=== PATIENT | male | born 1960 | race Caucasian/White ===

== ENCOUNTER 2017-08-18 20:24 | Emergency (ER) | payer BC, SELFPAY ==
[2017-08-18] MEDS ORDERED: Ibuprofen 800 MG TAB ONE (20:32)
== END 2017-08-18 21:10 | disposition home or self-care (01) ==
LOC: SCSER 20:24
DX: B34.9 Viral infection, unspecified (principal)
CPT/HCPCS: 99283

== ENCOUNTER 2018-11-14 21:04 | Emergency (ER) | payer BC, OTHER | END 2018-11-14 21:30 | disposition home or self-care (01) | LOC: SCSER 21:04 | DX: J34.0 Abscess, furuncle and carbuncle of nose (principal) | CPT/HCPCS: 99283 ==

== ENCOUNTER 2020-02-15 09:43 | Outpatient (CLI) | payer BC ==
--- NOTE | 2020-02-15 10:48 | RAD ---
RIGHT KNEE 4 VIEWS: HISTORY: Right knee pain. FINDINGS/IMPRESSION: Mild degenerative changes are seen. No fracture, dislocation, or bone destruction is identified. POS: [facility]
== END 2020-02-15 09:44 | disposition home or self-care (01) ==
LOC: BICRAD 09:43
PROVIDERS: ATTEND Family Medicine
DX: M25.561 Pain in right knee (principal); M17.11 Unilateral primary osteoarthritis, right knee

== ENCOUNTER 2021-01-10 09:12 | Outpatient (CLI) | payer BC ==
[2021-01-10] MEDS ORDERED: Magnevist 469MG/ML 20 ML VIAL ONE (13:13)
== END 2021-01-10 09:13 | disposition home or self-care (01) ==
LOC: TBSIIMAG 09:12
PROVIDERS: ATTEND Urology
DX: C61 Malignant neoplasm of prostate (principal)
CPT/HCPCS: 72197; A9579

== ENCOUNTER 2021-03-08 10:58 | Outpatient (CLI) | payer BC ==
[2021-03-08 12:21] LABS: Hemoglobin 14.9 g/dL (13.5-17.5); Mean Corpuscular HGB CONC 34.6 g/dL (32.0-36.0); Mean Corpuscular Hemoglobin 30.1 pg (27.0-33.0); Mean Corpuscular Volume 87.1 fl (81.2-95.1); Mean Platelet Volume 10.4 fl (7.4-10.4); Platelet Count 201 10x3/uL (150-450); RBC Distribution Width 12.6 % (11.5-14.5); Red Blood Cell (RBC) Count 4.95 10x6/uL (4.32-5.72); White Blood Cell (WBC) Count 5.8 10x3/uL (3.5-10.5)
[2021-03-08 12:33] LABS: Bilirubin Neg (Negative); Blood, Urine Negative (Negative); Clarity Cloudy (Clear); Glucose, Urine (Dipstick) Normal (Negative); Ketone, Urine 5 mg/dL (Negative); Leukocyte 25 (Negative); Nitrite Negative (Negative); Protein, Urine (Dipstick) 30 mg/dl (Neg-Trace); Urobilinogen Normal mg/dL (Less than 2)
[2021-03-08 12:39] LABS: PTT 26.5 sec (22.0-33.0); Prothrombin Time 10.7 sec (9.5-12.1)
[2021-03-08 12:47] LABS: RBC/HPF 0-3 HPF (0-3)
[2021-03-08 12:49] LABS: Anion Gap 15 mmol/L (10-20); BUN (Urea Nitrogen) 19 mg/dL (8.4-25.7); Calc. Creatinine Clearance 0 mL/min (70-130); Calcium 9.6 mg/dL (7.8-10.44); Carbon Dioxide 26 mmol/L (22-29); Chloride 107 mmol/L (98-107); Glucose 138 mg/dL (70-105); Potassium 5.1 mmol/L (3.5-5.1); Sodium 143 mmol/L (136-145)
[2021-03-08 12:51] LABS: Squamous Epithelial 0-3 HPF (0-3)
[2021-03-08 12:52] LABS: Bacteria/HPF Rare-Few HPF (None Seen); WBC/HPF 0-3 HPF (0-3)
== END 2021-03-08 10:59 | disposition home or self-care (01) ==
LOC: LABBT 10:58
PROVIDERS: ATTEND Urology
DX: Z01.812 Encounter for preprocedural laboratory examination (principal); Z12.5 Encounter for screening for malignant neoplasm of prostate; C61 Malignant neoplasm of prostate; N40.1 Benign prostatic hyperplasia with lower urinary tract symptoms; N52.9 Male erectile dysfunction, unspecified; E11.9 Type 2 diabetes mellitus without complications; R97.20 Elevated prostate specific antigen [PSA]; R35.1 Nocturia; R35.0 Frequency of micturition; R80.9 Proteinuria, unspecified; R81 Glycosuria; Z20.822 Contact with and (suspected) exposure to COVID-19
CPT/HCPCS: 80048; 81001; 85027; 85610; 85730; 87086; 93005; 93010

== ENCOUNTER 2021-03-13 06:07 | Day surgery (SDC) | payer BC ==
[2021-03-12 11:47] VITALS: BMI 28.1
[2021-03-13] MEDS ORDERED: Levofloxacin 500 mg/D5W 100 ml Premix Bag ONE (06:43)
[2021-03-13] MEDS ORDERED: cefTRIAXone\\ROCEPHIN 2 GM VIAL ONE (06:43)
[2021-03-13] MEDS ORDERED: Sodium Chloride 0.9% 100 ML ONE (06:43)
[2021-03-13] MEDS ORDERED: PROPOFOL 200 MG/20 ML VIAL ONE (07:35)
== END 2021-03-13 09:25 | disposition home or self-care (01) ==
LOC: SDC 06:07
PROVIDERS: ATTEND Urology
PROC: 0VB03ZX Excision of Prostate, Percutaneous Approach, Diagnostic (ICD-10-PCS; principal; 2021-03-13)
DX: C61 Malignant neoplasm of prostate (principal); N40.1 Benign prostatic hyperplasia with lower urinary tract symptoms; R35.0 Frequency of micturition; R35.1 Nocturia; N52.9 Male erectile dysfunction, unspecified; E11.9 Type 2 diabetes mellitus without complications; M19.90 Unspecified osteoarthritis, unspecified site; Z86.16 Personal history of COVID-19; Z79.84 Long term (current) use of oral hypoglycemic drugs; Z79.899 Other long term (current) drug therapy
CPT/HCPCS: 88305; J0696; J1956; J2704; J3490

== ENCOUNTER 2021-09-16 15:09 | Outpatient (CLI) | payer BC | END 2021-09-16 15:10 | disposition home or self-care (01) | LOC: CTENTCT 15:09 | PROVIDERS: ATTEND Student in an Organized Health Care Education/Training Program | DX: F32.9 Major depressive disorder, single episode, unspecified (principal) | CPT/HCPCS: 70486 ==

== ENCOUNTER 2022-08-26 07:01 | Day surgery (SDC) | payer BC ==
[2022-08-25 13:32] VITALS: BMI 27.8
[2022-08-26] MEDS ORDERED: Oxymetazoline HCl 0.05% (30 ML BOT) ONE ×2 (07:48→08:38)
[2022-08-26 08:38] LABS: Anion Gap 9 mmol/L (10-20); BUN (Urea Nitrogen) 24 mg/dL (8.4-25.7); Calc. Creatinine Clearance 133 mL/min (70-130); Calcium 8.7 mg/dL (7.8-10.44); Carbon Dioxide 24 mmol/L (22-29); Chloride 109 mmol/L (98-107); Estimated GFR 103; Glucose 116 mg/dL (70-105); Sodium 138 mmol/L (136-145)
[2022-08-26] MEDS ORDERED: Bacitracin Zinc Ointment 30 gm TUBE ONE (08:38)
[2022-08-26] MEDS ORDERED: Lidocaine 1% (PF) 30 ML VIAL ONE (08:38)
[2022-08-26] MEDS ORDERED: EPINEPHrine 1 MG/ML AMP ONE (08:38)
[2022-08-26] MEDS ORDERED: fentaNYL PF 100 MCG/2 ML SYRINGE ONE (08:41)
[2022-08-26] MEDS ORDERED: Midazolam HCl 2 mg/2 ml Vial ONE (08:41)
[2022-08-26] MEDS ORDERED: HYDROmorphone 0.5 MG/0.5 ML SYRINGE ONE (08:41)
[2022-08-26] MEDS ORDERED: NEOSTIGMINE 3 MG/3 ML SYR 3 MG/3 ML SYRINGE ONE (09:43)
[2022-08-26] MEDS ORDERED: Dexamethasone 20 MG/5 ML VIAL ONE (09:43)
[2022-08-26] MEDS ORDERED: Ondansetron PF 4 MG/2 ML Vial ONE (09:43)
[2022-08-26] MEDS ORDERED: ePHEDrine 50 MG/ML VIAL ONE (09:43)
[2022-08-26] MEDS ORDERED: Glycopyrrolate 0.2 MG/ML 5 ML SYRINGE ONE (09:43)
[2022-08-26] MEDS ORDERED: PROPOFOL 200 MG/20 ML VIAL ONE (09:43)
[2022-08-26] MEDS ORDERED: Rocuronium Bromide 10 MG/ML (10ML VIAL) ONE (09:43)
[2022-08-26] MEDS ORDERED: Triamcinolone 40 MG/ML VIAL ONE (10:18)
== END 2022-08-26 14:23 | disposition home or self-care (01) ==
LOC: SDC 07:01
PROVIDERS: ATTEND Student in an Organized Health Care Education/Training Program
PROC: 09QK0ZZ Repair Nasal Mucosa and Soft Tissue, Open Approach (ICD-10-PCS; principal; 2022-08-26)
PROC: 09TL0ZZ Resection of Nasal Turbinate, Open Approach (ICD-10-PCS; principal; 2022-08-26)
PROC: 09SM0ZZ Reposition Nasal Septum, Open Approach (ICD-10-PCS; principal; 2022-08-26)
DX: J34.2 Deviated nasal septum (principal); J34.3 Hypertrophy of nasal turbinates; J34.89 Other specified disorders of nose and nasal sinuses; J32.8 Other chronic sinusitis; E11.9 Type 2 diabetes mellitus without complications; N40.0 Benign prostatic hyperplasia without lower urinary tract symptoms; M19.90 Unspecified osteoarthritis, unspecified site; N52.9 Male erectile dysfunction, unspecified; C61 Malignant neoplasm of prostate; Z86.16 Personal history of COVID-19; Z79.85 Long-term (current) use of injectable non-insulin antidiabetic drugs; Z79.899 Other long term (current) drug therapy
CPT/HCPCS: 36415; 80048; 93005; 93010; C1889; J0171; J1100; J1170; J2001; J2250; J2405; J2704; J3301; J3490

== ENCOUNTER 2023-12-14 | Outpatient (CLI) | payer BC | END 2023-12-14 15:13 | disposition home or self-care (01) | DX: Z01.818 Encounter for other preprocedural examination (principal); Z12.5 Encounter for screening for malignant neoplasm of prostate; C61 Malignant neoplasm of prostate; N52.9 Male erectile dysfunction, unspecified; E11.9 Type 2 diabetes mellitus without complications; R97.20 Elevated prostate specific antigen [PSA]; N40.1 Benign prostatic hyperplasia with lower urinary tract symptoms; R35.1 Nocturia; R35.0 Frequency of micturition; R82.81 Pyuria; R80.9 Proteinuria, unspecified; R81 Glycosuria ==

== ENCOUNTER 2024-07-25 16:13 | Outpatient (CLI) | payer BC | END 2024-07-25 16:14 | disposition home or self-care (01) | LOC: BICCT 16:13 | PROVIDERS: ATTEND Urology | DX: C61 Malignant neoplasm of prostate (principal); S33.2XXA Dislocation of sacroiliac and sacrococcygeal joint, initial encounter; G95.89 Other specified diseases of spinal cord; M48.061 Spinal stenosis, lumbar region without neurogenic claudication; M48.07 Spinal stenosis, lumbosacral region; Z91.81 History of falling | CPT/HCPCS: 72192 ==